=== PATIENT | male | born 2000 | race Caucasian/White ===

== ENCOUNTER 2022-12-19 11:49 | Outpatient (REF) | payer MEDICAID, SELFPAY ==
[2022-12-19 20:19] LABS: MANUAL DIFF FLAG NO
[2022-12-19 20:35] LABS: Basophils Absolute Auto 0.1 X10*3/uL (0.0-0.2); Basophils Percent Auto 0.6 % (0-2); Eosinophils Absolute Auto 0.3 X10*3/uL (0.0-0.4); Eosinophils Percent Auto 3.2 % (0-4); Hematocrit 42.7 % (42.0-52.0); Hemoglobin 14.5 g/dl (14.0-18.0); Imm Gran Abs Auto 0.02 X10*3/uL (0.00-0.03); Imm Gran Pct Auto 0.3 % (0.0-0.4); Lymphocytes Absolute Auto 2.4 X10*3/uL (1.2-4.9); Lymphocytes Percent Auto 30.8 % (20-40); Mean Corpuscular Volume 88.2 fL (80.0-98.0); Mean Platelet Volume 10.1 fL (9.4-12.4); Monocytes Absolute Auto 0.5 X10*3/uL (0.1-1.2); Monocytes Percent Auto 6.6 % (2-11); Neutrophils Absolute Auto 4.6 x10*3/uL (2.0-8.3); Neutrophils Percent Auto 58.5 % (45-73); Platelet Count 259 X10*3/uL (160-400); Red Blood Count 4.84 X10*6/uL (4.60-5.80); Red Cell Distribution Width 12.7 % (11.0-16.0); White Blood Count 7.9 X10*3/uL (4.8-10.8)
[2022-12-19 20:59] LABS: Iron 83 mcg/dL (45-160); Percent Iron Saturation 35 % (15-50); Total Iron Binding Capacity 240 mcg/dL (228-428); Unsaturated Iron Binding 157 ug/dL
[2022-12-19 21:29] LABS: Folate 5.4 ng/mL (> or = 4.0); Free T4 (Free Thyroxine) 1.17 ng/dL (0.71-1.85); Insulin 15 uU/mL (2-29); Thyroid Stimulating Hormone 1.63 uIU/mL (0.32-4.0); Vitamin B12 1628 pg/mL (200-900)
[2022-12-19 22:50] LABS: Ferritin 168 ng/mL (20-250)
[2022-12-20 07:44] LABS: Estimated Average Glucose 100 mg/dL; Hemoglobin A1c % 5.1 %
== END 2022-12-19 11:50 | disposition home or self-care (01) ==
LOC: HO.MANLDS 11:49
PROVIDERS: Visit Provider Physician Assistant
DX: E03.8 Other specified hypothyroidism (principal); D50.0 Iron deficiency anemia secondary to blood loss (chronic)
CPT/HCPCS: 36415; 82607; 82728; 82746; 83036; 83525; 83540; 84439; 84443; 85025

== ENCOUNTER 2025-10-27 14:42 | Outpatient (REF) | payer MEDICAID, SELFPAY ==
[2025-10-27 18:20] LABS: MANUAL DIFF FLAG NO
[2025-10-27 18:24] LABS: Hematocrit 45.5 % (42.0-52.0); Hemoglobin 15.9 g/dl (14.0-18.0); Imm Gran Abs Auto 0.02 X10*3/uL (0.00-0.03); Imm Gran Pct Auto 0.3 % (0.0-0.4); Lymphocytes Absolute Auto 1.4 X10*3/uL (1.2-4.9); Mean Corpuscular HGB Conc 34.9 g/dl (31.0-36.0); Mean Corpuscular Hemoglobin 33.2 pg (27.0-33.0); Mean Corpuscular Volume 95.0 fL (80.0-98.0); NRBC Abs Auto 0.000 X10*3/uL (0.0-0.012); NRBC Pct Auto 0.0 /100WBC (0.0-0.2); Platelet Count 276 X10*3/uL (160-400); Red Blood Count 4.79 X10*6/uL (4.60-5.80); White Blood Count 6.0 X10*3/uL (4.8-10.8)
[2025-10-27 18:49] LABS: Alanine Aminotransferase 52 U/L (0-40); Albumin Level 5.3 g/dL (3.5-5.0); Alkaline Phosphatase 59 U/L (39-117); Anion Gap 11 (12-20); Aspartate Amino Transferase 42 U/L (5-37); Blood Urea Nitrogen 12 mg/dL (9-16); Calcium 9.8 mg/dL (8.4-10.2); Carbon Dioxide 29 mmol/L (22-29); Chloride 103 mmol/L (96-108); Estimated Glomerular Filt Rate > 60; Potassium 4.1 mmol/L (3.3-5.1); Sodium 139 mmol/L (135-145); Total Protein 7.7 g/dL (6.5-8.0)
--- OUTSIDE RECORDS SUMMARY | 2025-10-27 18:56 | XMS_ITS | Data Portability ---
Author Organization [facility] Telehealth Patient Home Address [address] [place] [address] Assessment Encounter Date Assessment Date Assessment LastModified by Organization Details LastModified Time 10/15/2024 10/15/2024 [id number] [place] [id number] (BRAND PL[employer]NER) MDM MODERATE MUST MEET 2 OUT OF 3 ELEMENTS: PROBLEMS, DATA OR RISK ELEMENT 1: PROBLEMS ADDRESSED 1 OR MORE CHRONIC ILLNESS WITH EXACERBATION OR 2 OR MORE STABLE CHRONIC ILLNESSES OR 1 UNDIAGNOSED NEW PROBLEM OR 1 ACUTE ILLNESS W/SYMPTOMS OR 1 ACUTE COMPLICATED INJURY ELEMENT 2: DATA MUST MEET 1 OF 3 CATEGORIES CATEGORY 1: REVIEW OF PRIOR EXTERNAL NOTES, REVIEW OF RESULTS, ORDERING OF EACH TEST, ASSESSMENT REQUIRING INDEPENDENT HISTORIAN OR CATEGORY 2: INDEPENDENT INTERPRETATION OF TESTS BY ANOTHER PHYSICIAN OR SPECIALIST OR CATEGORY 3: DISCUSSION OF MGT OR TEST INTERPRETATION W/EXTERNAL PHYSICIAN OR SPECIALIST ELEMENT 3: RISK RISK OF COMPLICATIONS AND/OR MORBIDITY OR MORTALITY OF PATIENT MANAGEMENT PROVIDER MUST THOROUGHLY DOCUMENT EACH ELEMENT THAT IS COVERED Not available 10/15/2024 15:20:39 Plan of Treatment Reminders Order Date Submit Date Provider Last Modified By Organization Details Last Modified Time Details Appointments FOLLOW UP 15 2024 02:15P LIA GUPTA Not available Not available Not available Lab TSH + free T4, serum 2024 025 [facility], [address] [place] [address], [address], 10/27/2025 14:30:42 CMP, serum or plasma 2024 025 [facility], [address] [place] [address], [address], 10/27/2025 14:30:42 CBC w/ auto diff 2024 [facility], [address] [place] [address], [place], [address], 10/27/2025 14:30:41 HIV (1+2) Ab screen, serum 2023 024 [facility] (Centralized Electronic Ordering - All Locations), Patient Can Go To The Location Of Their Choice, [facility] 10/15/2024 15:18:50 RPR (rapid plasma reagin), serum 2023 024 [facility] (Centralized Electronic Ordering - All Locations), Patient Can Go To The Location Of Their Choice, [facility] 10/15/2024 15:18:50 CT + NG DNA, PCR, urine 2023 024 [facility] (Centralized Electronic Ordering - All Locations), Patient Can Go To The Location Of Their Choice, [facility] 10/15/2024 15:18:50 TSH + free T4, serum 2023 024 [facility] (Centralized Electronic Ordering - All Locations), Patient Can Go To The Location Of Their Choice, [facility] 10/15/2024 15:18:50 CMP, serum or plasma 2023 024 [facility] (Centralized Electronic Ordering - All Locations), Patient Can Go To The Location Of Their Choice, [facility] 10/15/2024 15:18:50 Referral None recorded. Procedures None recorded. Surgeries None recorded. Imaging None recorded. Medication Orders bupropion HCl XL 300 mg 24 hr tablet, extended release 2024 025 [facility] #[id number], [address] [place], [address], 10/27/2025 14:35:14 sertralin e 100 mg tablet 2024 025 [facility] #[id number], [address] [place], [address], 10/27/2025 14:35:14 bupropion HCl XL 450 mg 24 hr tablet, extended release [id number], [address], [place], [id number], 10/27/2025 14:19:55 Apretude 600 mg/3 mL (200 mg/mL) IM suspensio n, extended release 2023 [facility][id number], [address], [place], [id number], 10/15/2024 15:25:15 levothyro xine 50 mcg tablet 2023 [facility] #[id number], [address], [place], [id number], 07/07/2024 14:58:16 bupropion HCl XL 300 mg 24 hr tablet, extended release 2023 [facility] #[id number], [address], [place], [id number], 07/07/2024 14:52:07 bupropion HCl XL 150 mg 24 hr tablet, extended release 2023 [facility] #[id number], [address], [place], [id number], 07/07/2024 14:52:39 Patient TargetsNo targets recorded. Patient Instructions Encounter Date Encounter Id Patient Instructions Last Modified By Organization Details Last Modified Time 10/15/2024 [id number] pulse oximetry* Not available 10/15/2024 15:18:36 learning about asthma Not available 10/15/2024 15:18:36 hypothyroidism: care instructions Not available 10/15/2024 15:18:36 attention defici t hyperactivity disorder (ADHD) in adults: care instructions Not available 10/15/2024 15:18:36 Reason for Referral None Reported. Results Created Date Observation Date Name Description Value Unit Range Abnormal Flag Note LastModifiedBy Organization Detail LastModifiedTime 10/15/20 24 10/15/2024 pulse oxime try* Result 98% Not Available [facility] [address] [facility] [address], [place], [address], 10/15/2024 08:43:00 Result Notes None recorded. Problems Name Problem SNOMED Code Status Onset Date Resolution Date Notes Provider Name and Address Organization Details Recorded Time Hypothyroi dism 95721305 Active 2020 LIA ALEGRE [address] [place] [address], [phone], [facility] 1 09:30:42 Edema of lower extremity 039449870 Active 2021 LIA ALEGRE [address] [place] [address], [address], [facility] 2 11:47:03 Anemia 364906181 Active 2021 LIA ALEGRE [address] [place] [address], [address], [facility] 2 12:00:11 Asthma 997042421 Active 2021 LIA ALEGRE [address] [place] [address], [phone], [facility] 2 12:17:21 Adult attention deficit hyperactiv ity disorder 974488307 Active 2022 LIA ALEGRE [address] [place] [address], [address], [facility] 3 14:50:46 Diarrhea 79239699 Active 2022 LIA ALEGRE [address] [place] [address], [address], [facility] 3 12:41:10 Acute bronchitis 00324305 Active 2022 LIA ALEGRE [address] [place] [address], [address], [facility] 3 14:10:40 Anxiety 82736323 Active 2023 LIA ALEGRE [address] [place], [address], [facility] 4 11:49:04 Depressive disorder 31338744 Active 2023 LIA ALEGRE [address] [place], [address], [facility] 4 11:49:10 Acute sinusitis 40031150 Active 2024 LIA ALEGRE [address] [place], [address], [facility] 5 11:22:50 Problem Notes None recorded. Medical Equipment None Reported. Allergies Allergen ID Allergen Name Allergen Category Reaction Reaction Severity Criticality Documentation Date Start Date Code Code System Note Provider Name and Address Organization Details Recorded Time 5984 Product containin g penicilli n (product) medicatio n anaphylax is Not available Not available 07/10/2022 24226 8001 SNOMED Teresa Malagon [facility] 2 11:36:37 5985 amoxicill in medicatio n anaphylax is Not available Not available 07/10/2022 723 [facility] 11:[facility] Medications Name Sig Start Date Stop Date Status Note LastModified by Organization Details LastModified Time doxycycline hyclate 100 mg capsule Take 1 capsule twice a day by oral route for 10 days. 07/20 completed Not Available Not Available Not Available clindamycin HCl 300 mg capsule TAKE ONE CAPSULE BY MOUTH EVERY 6 HOURS 05/30 completed Not Available Not Available Not Available azithromyci n 250 mg tablet TAKE 2 TABLETS (500 MG) BY ORAL ROUTE ONCE DAILY FOR 1 DAY THEN 1 TABLET (250 MG) BY ORAL ROUTE ONCE DAILY FOR 4 DAYS 09/23 completed Not Available Not Available Not Available ibuprofen 800 mg tablet TAKE 1 TABLET BY MOUTH EVERY 6 HOURS WITH FOOD 05/30 completed Not Available Not Available Not Available clarithromy yasmany 500 mg tablet TAKE 1 TABLET BY MOUTH EVERY 12 HOURS FOR 7 DAYS 05/30 completed Not Available Not Available Not Available sertraline 100 mg tablet TAKE 1 TABLET BY MOUTH EVERY DAY 2024 active Not Available Not Available Not Avai lable ketorolac 10 mg tablet TAKE 1 TABLET BY MOUTH FOUR TIMES DAILY FOR 2 DAYS NEEDED FOR PAIN. NOT TO EXCEED 40 MG DAILY AND 5 DAYS DURATION FOR ALL DOSE FORMS 05/30 completed Not Available Not Available Not Available oxycodone-a cetaminophe n 5 mg-325 mg tablet TAKE 1 TABLET BY MOUTH EVERY 6 HOURS NEEDED 07/10 completed Not Available Not Available Not Available Imodium A-D 2 mg tablet TAKE ONE TABLET PO FOR DIARRHEA, MAY REPEAT AFTER AN HOUR, MAX OF 4 TABLETS PER DAY 05/30 completed Not Available Not Available Not Available levothyroxi ne 50 mcg tablet TAKE 1 TABLET BY MOUTH EVERY DAY active Not Available Not Available No t Available furosemide 20 mg tablet TAKE 1 TABLET BY MOUTH EVERY DAY 05/30 completed Not Available Not Available Not Available methylpredn isolone 4 mg tablets in a dose pack FOLLOW PACKAGE DIRECTION S 05/30 completed Not Available Not Available Not Available oxycodone 5 mg tablet TAKE 1 TABLET BY MOUTH EVERY 6 HOURS FOR 3 DAYS NEEDED FOR PAIN 05/30 completed Not Available Not Available Not Available bupropion HCl XL 300 mg 24 hr tablet, extended release Take 1 tablet every day by oral route as directed for 90 days. 2024 active Not Available Not Available Not Avai lable bupropion HCl XL 150 mg 24 hr tablet, extended release TAKE 1 TABLET BY MOUTH EVERY DAY DIRECTED 07/07 completed Not Available Not Available Not Available Suboxone 8 mg-2 mg sublingual film DISSOLVE 1 FILM UNDER THE TONGUE DAILY 05/30 completed Not Available Not Available Not Available bupropion HCl XL 450 mg 24 hr tablet, extended release Take 1 tablet every day by oral route for 30 days. 10/27 completed Not Available Not Available Not Available Apretude 600 mg/3 mL (200 mg/mL) IM suspension, extended release INJECT 3ML EVERY 2 MONTHS BY INTRAMUSC ULAR ROUTE active Not Available Not Available No t Available Vitals Date Recorded Body height Body mass index (BMI) Body weight Heart rate Oxygen saturation Systolic And Diastolic Provider Name and Address Organization Details Last Updated DateTime 4 185.42 cm 36.7 kg/m2 683758. 68 g 86 /min 97 % 128/78 mm[Hg] Odell Fitzpatrick [facility] 4 16:18:29 Date Recorded Body height Body mass index (BMI) Body weight Heart rate Oxygen saturation Systolic And Diastolic Provider Name and Address Organization Details Last Updated DateTime 4 185.42 cm 34.7 kg/m2 755383. 43 g 83 /min 96 % 120/80 mm[Hg] Sangita Gilmore [facility] 4 14:41:05 Date Recorded Body height Body mass index (BMI) Body weight Heart rate Oxygen saturation Systolic And Diastolic Provider Name and Address Organization Details Last Updated DateTime 4 185.42 cm 34.8 kg/m2 670418. 31 g 73 /min 98 % 128/82 mm[Hg] Sangita Gilmore [facility] 4 14:21:07 Date Recorded Body height Body mass index (BMI) Body weight Heart rate Oxygen saturation Systolic And Diastolic Provider Name and Address Organization Details Last Updated DateTime 4 185.42 cm 32.7 kg/m2 519714. 91 g 94 /min 98 % 144/84 mm[Hg] Brenden Pineda, DO [address] [place], [address], [facility] 4 14:48:16 Date Recorded Body height Body mass index (BMI) Body weight Heart rate Oxygen saturation Systolic And Diastolic Provider Name and Address Organization Details Last Updated DateTime 5 185.42 cm 29.6 kg/m2 048713. 69 g 80 /min 99 % 128/80 mm[Hg] Ruth Parikh [facility] 5 14:14:23 Social History Question Answer Notes LastModified by Organizat ion Details LastModified Time Tobacco Smoking Status Current Every Day Smoker 1 pack per day Teresa ellsworth [facility] 07/10/2022 11:38:43 What Was The Date Of Your Most Recent Tobacco Screening? 10/27/2025 Information not available 10/27/2025 How Much Tobacco Do You Smoke? 1 PPD [email or web address] Information not available 05/30/2024 Sex: Unknown Functional Status Question Answer Note LastModified by Organization D etails LastModified Time Do you or have you ever used any other forms of tobacco or nicotine? No [email or web address] Information not available 10/27/2025 Mental Status None recorded. Family History Nothing Reported. Medical History No medical history recorded. Immunizations Vaccine Type Date Status Note Provider Nam e and Address Organization Details Recorded Time COVID-19, mRNA, LNP-S, PF, 50 mcg/0.5 mL dose 11/15/2021 completed Teresa ellsworth [facility] 12/13/2022 08:07:08 COVID-19, mRNA, LNP-S, PF, 50 mcg/0.5 mL dose 12/13/2021 completed Teresa ellsworth [facility] 12/13/2022 08:07:14 Past Encounters Encounter ID Performer Location Encounter Start Date Encounter Closed Date Diagnosis/Indication Diagnosis SNOMED-CT Code Diagnosis ICD10 Code Diagnosis IMO Codes Diagnosis Note [id number] Brenden Pineda [facility] [address] [place] [address] 12/13/2021 08:34:34 12/13/2021 16:35:02 Hypothyroidism 18871102 E03.9 rechk tsh t4 cmp Hyperlipid emia screening 860982902 Z13.220 [id number] LIA ALEGRE [facility] [address] [place] [address] 07/10/2022 11:27:36 07/10/2022 12:22:33 Edema of lower extremity 190581963 R60.0 will start on US duplex fahad for his LEs and given an order for compressio n stocking above the knee Anemia 967475343 D50.0 will monitor with routine blood work Hypothyroidism 45646488 E03.9 will fu with refill [id number] Brenden Pineda [facility] [address] [facility],[place] [address] 12/13/2022 08:14:27 12/15/2022 12:07:30 Hypothyroidism 41849001 E03.8 will fu with marian recheck levels Anemia 130545450 D50.0 will monitor with routine blood work Asthma 155538080 J45.40 stable Body mass index 40+ - severely obese 960229744 Z68.41 will set up with testing for his lab workwill come to our next week when it is reopen [id number] Brenden Pineda [facility] [address] [facility] [address] [address] 03/13/2023 14:33:21 03/13/2023 15:22:50 Asthma 996975834 J45.40 stable Adult atte ntion deficit hyperactivity disorder 440245981 F90.0 stable Hypothyroidism 29486430 E03.8 stable [id number] Brenden Pineda [facility] [address] [facility], [address] [facility] [place] [address] 11/09/2023 10:43:14 11/13/2023 09:50:47 Acute bronchitis 78193887 J20.9 will set up with angeline frazier fu with patient any changes [id number] Brenden Pineda [facility] [address] [facility] [address] [place] [place] [address] 04/11/2024 11:31:37 04/11/2024 11:58:48 Body mass index 40+ - severely obese 543627286 Z68.41 discussed weight Adult atte ntion deficit hyperactivity disorder 709268193 F90.0 stable Asthma 697906656 J45.40 stable Anxiety 56945064 F41.1 stable Depressive disorder 3548 9007 F32.1 stable Depression screening 171 315475 Z13.31 stable [id number] Brenden Pineda [facility] [address] [facility] [address] [address] 05/30/2024 16:10:40 06/02/2024 08:38:36 Depression screening 310228710 Z13.31 stabledisc ussed with [facility] wellbutrin will get him started Adult atte ntion deficit hyperactivity disorder 666158085 F90.0 stable [id number] Brenden Pineda [facility] [address] [facility] [address] [address] 07/07/2024 14:23:04 07/07/2024 15:03:34 Adult attention deficit hyperactivity disorder 847101342 F90.0 increase dose up Hypothyroidism 12035525 E03.8 stableneed s refill [id number] Brenden Pineda [facility] [address] [facility] [address] [address] 08/11/2024 14:15:13 08/11/2024 14:41:14 Adult attention deficit hyperactivity disorder 177372949 F90.0 continue on the bupropion 300 mgwill fu on the psychiatri [facility] [id number] Brenden Pineda [facility] [address] [facility] [address] [address] 10/15/2024 14:41:26 10/15/2024 15:28:53 Asthma 457025151 J45.909 Adult atte ntion deficit hyperactivity disorder 182312747 F90.0 Hypothyroidism 26698300 E03.8 rechk tsh t4 cmp Viral screening 87105419 4 Z11.59 History of human immunodeficiency virus pre-exposure prophylaxis 1869464383 94487596 Z92.29 [id number] Brenden Pineda [facility] [address] [facility] [address] [address] 10/27/2025 14:05:25 10/27/2025 14:39:43 Depression screening 651956721 Z13.31 negative Adult atte ntion deficit hyperactivity disorder 703467842 F90.0 Anxiety 96664409 F41.1 Depressive disorder 3548 9007 F32.1 Hypothyroidism 59439919 E03.8 stableneed s refill Health Concerns Section Related Observation LastModified by Organization Detai ls LastModified Time None Recorded Concern Status LastModified by Organization Details LastModified Time None Recorded Advance Directives Directive None Recorded Payers Insurance Date Sequence Insurance Name Policy Number Policy Nathan Covered Member ID Nathan Member ID Guarantor Name 10/27/2025 1 [place] Alex Trudi [id number] Alex Trudi 12/12/2021 1 [employer] (EPO) [id number] Bladimir Trudi [id number] Alex Trudi 10/27/2025 1 [place] PRIOR TO 2023 - [facility] (MEDICAID) Alex Trudi [id number] Alex Trudi 10/27/2025 [facility] Alex Trudi [id number] Alex Trudi 10/27/2025 2 [facility] [employer] - TOGETHER (MEDICAID HMO) Alex Trudi [id number] Alex Trudi 10/27/2025 1 [place] [facility] Trudi [id number] Alex Trudi Notes Date Note Type Note Provider Name and Address Organization Details Recorded Time 4 text/html ROS as noted in the HPI f/u the patient is doing goodhad [facility] of [facility] symptoms to get him started on the wellbutrin 150 mg, will start on the medication and f/u in a month to check how well he did it will set up with sujatha mukherjee yearly physical LIA ALEGRE [address] [place] [address], [address], [facility] 05/30/2024 16:59:21 4 text/html ROS as noted in the HPI 1 mos f/u the patient reports that he hasn't noticed a big difference in the bupropion, but that it isn't causing side effects the patient recently will be starting a job the patient's father has noticed more clarity with the patient and feels he has been doing better did agree to adjusting the dose up to 300 mgwill send in new script f/u in 1 mos LIA ALEGRE [address] [place], [address], [facility] 07/07/2024 15:02:48 4 text/html ROS as noted in the HPI 1 mos f/u the patient has a psychiatrist referral placed from her therapistcurrently on bupropion 300 mg, has had some really good results with it according to patient, would like to see if sertraline can be adjusted to a new dose or alternative medication will continue on current medication currently no other questions todayotherwise doing well LIA ALEGRE [address] [place], [address], [facility] 08/11/2024 14:40:07 4 text/html ROS as noted in the HPI here for rechk and is doing okrelates we discussed his hx and tx and how he si doing on current meds Brenden Pineda DO [address] [place], [address], [facility] 10/15/2024 15:27:15 5 text/html ROS as noted in the HPI medication check f/u the patient is here today for his medication checkthe patient reports he feels like his medication regimen is working well with the current medication dosesno change required at today's appt the patient is due for lab work to recheck his thyroid levelsthe patient was given a lab sheet a today's appt needs refills LIA ALEGRE [address] [place], [address], [facility] 10/27/2025 14:38:30
--- OUTSIDE RECORDS SUMMARY | 2025-10-27 18:56 | XMS_ITS | Continuity of Care Document ---
Author Organization [facility] Address [address] [place] [address] [place] [address] Assessment No assessment recorded. Plan of Treatment Reminders Order Date Submit Date Provider Last Modified By Organization Details Last Modified Time Details Appointments FOLLOW UP 15 2024 02:15P LIA GUPTA Not available Not available Not available Lab TSH + free T4, serum 2024 025 [facility], [address] [place] [address], [id number], 10/27/2025 14:30:42 CMP, serum or plasma 2024 025 [facility], [address] [place] [address], [id number], 10/27/2025 14:30:42 CBC w/ auto diff 2024 025 [facility], [address] [place] [address], [id number], 10/27/2025 14:30:41 Referral None recorded. Procedures None recorded. Surgeries None recorded. Imaging None recorded. Medication Orders bupropion HCl XL 300 mg 24 hr tablet, extended release 2024 025 [facility] #[id number], [address] [place] [address], [id number], 10/27/2025 14:35:14 sertralin e 100 mg tablet 2024 025 [facility] #[id number], [address] [place], [id number], 10/27/2025 14:35:14 Patient TargetsNo targets recorded. Patient InstructionsNo instructions recorded. Reason for Referral None Reported. Problems Name Problem SNOMED Code Status Onset Date Resolution Date Notes Provider Name and Address Organization Details Recorded Time Hypothyroi dism 63556745 Active 2020 LIA ALEGRE [address] [place] [address], [phone], [facility] 1 09:30:42 Edema of lower extremity 378185490 Active 2021 LIA ALEGRE [address] [place] [address], [address], [facility] 2 11:47:03 Anemia 852083205 Active 2021 LIA ALEGRE [address] [place] [address], [address], [facility] 2 12:00:11 Asthma 522959088 Active 2021 LIA ALEGRE [address] [place] [address], [address], [facility] 2 12:17:21 Adult attention deficit hyperactiv ity disorder 082351157 Active 2022 LIA ALEGRE [address] [place] [address], [address], [facility] 3 14:50:46 Diarrhea 91840425 Active 2022 LIA ALEGRE [address] [place] [address], [address], [facility] 3 12:41:10 Acute bronchitis 80890584 Active 2022 LIA ALEGRE [address] [place] [address], [address], [facility] 3 14:10:40 Anxiety 81480522 Active 2023 LIA ALEGRE [address] [place] [address], [address], [facility] 4 11:49:04 Depressive disorder 14605532 Active 2023 LIA ALEGRE [address] [place], [address], [facility] 4 11:49:10 Acute sinusitis 89681602 Active 2024 LIA ALEGRE [address] [place], [address], [facility] 5 11:22:50 Problem Notes None recorded. Medical Equipment None Reported. Allergies Allergen ID Allergen Name Allergen Category Reaction Reaction Severity Criticality Documentation Date Start Date Code Code System Note Provider Name and Address Organization Details Recorded Time 5984 Product containin g penicilli n (product) medicatio n anaphylax is Not available Not available 07/10/2022 44319 8001 [facility]ED [facility] 11:[facility]37 5985 amoxicill in medicatio n anaphylax is Not available Not available 07/10/2022 723 [facility] 11:36:47 Medications Name Sig Start Date [...] Updated DateTime 5 185.42 cm 29.6 kg/m2 703022. 69 g 80 /min 99 % 128/80 mm[Hg] Ruth Parikh [facility] 14:14:23 Social History Question Answer Notes LastModified by Organizat ion Details LastModified Time Tobacco Smoking Status Current Every Day Smoker 1 pack per day Teresa ellsworth [facility] 07/10/2022 11:38:43 What Was The Date Of Your Most Recent Tobacco Screening? 10/27/2025 [email or web address] Information not available 10/27/2025 How Much Tobacco Do You Smoke? 1 PPD [email or web address] Information not available 05/30/2024 Sex: Unknown Functional Status Question Answer Note LastModified by Organization D etails LastModified Time Do you or have you ever used any other forms of tobacco or nicotine? No [email or web address] Information not available 10/27/2025 Mental Status None recorded. Family History Nothing Reported. Medical History No medical history recorded. Immunizations Vaccine Type Date Status Note Provider Nam e and Address Organization Details Recorded Time COVID-19, mRNA, LNP-S, PF, 50 mcg/0.5 mL dose 11/15/2021 completed Teresa ellsworth [facility] 12/13/2022 08:07:08 COVID-19, mRNA, LNP-S, PF, 50 mcg/0.5 mL dose 12/13/2021 completed Teresa ellsworth [facility] 12/13/2022 08:07:14 Past Encounters Encounter ID Performer Location Encounter Start Date Encounter Closed Date Diagnosis/Indication Diagnosis SNOMED-CT Code Diagnosis ICD10 Code Diagnosis IMO Codes Diagnosis Note [id number] Brenden Pineda [facility] [address] [place] [address] 10/27/2025 14:05:25 10/27/2025 14:39:43 Depression screening 967647723 Z13.31 negative Adult atte ntion deficit hyperactivity disorder 195467722 F90.0 Anxiety 34132731 F41.1 Depressive disorder 3548 9007 F32.1 Hypothyroidism 01511097 E03.8 stableneed s refill Health Concerns Section Related Observation LastModified by Organization Detai ls LastModified Time None Recorded Concern Status LastModified by Organization Details LastModified Time None Recorded Payers Encounter Date Sequence Insurance Name Policy Number Policy Nathan Covered Member ID Nathan Member ID Guarantor Name 10/27/2025 1 [place] Alex Brush [id number] Alex Brush Notes Date Note Type Note Provider Name a nd Address Organization Details Recorded Time 10/27/2025 text/html ROS as noted in the HPI [...] a today's appt needs refills LIA ALEGRE [address] [place] [address], [place], [phone], [facility] 10/27/2025 14:38:30
== END 2025-10-27 14:43 | disposition home or self-care (01) ==
LOC: HO.MANLDS 14:42
PROVIDERS: Visit Provider Physician Assistant
DX: E03.8 Other specified hypothyroidism (principal)
CPT/HCPCS: 36415; 80053; 84443; 85025